=== PATIENT | male | born 1985 | race Two or more races ===

== ENCOUNTER 2024-11-27 19:50 | Emergency (ER) | payer MEDICAID, SELFPAY ==
[2024-11-27 19:58] VITALS: BP 152/94; PULSE 111; RESP 19; TEMP 36.3; O2SAT 98; BMI 27.4
--- NOTE | 2024-11-27 20:30 | XR_ITS ---
Examination: CT brain head without contrast. 2-D sagittal coronal reconstructions Date and time of exam:November 27, 2024 2043 hours INDICATIONS: Injury to the head today, head pain CTDI: vol (mGy):52.2 DLP: (mGycm):1029 Technique: Multiple CT axial sections of the brain have been obtained, 5 mm slice thickness. Contrast has not been administered. 2-D sagittal, coronal reconstructions have been obtained Low dose protocols were performed. One or more of the following dose reduction techniques were used; automated exposure control, adjustment of the mA and/or KV according to patient size, use of iterative reconstruction technique. Findings: No significant ventricular enlargement. Intra-axial or extra-axial hemorrhage density is not seen. No mass effect or midline shift Basal cisterns are not remarkable. Fourth ventricle is midline. Cranial vault intact. Frontal sinusitis Old right nasal bone fracture Impression: Negative for acute hemorrhage, mass effect or midline shift
--- NOTE | 2024-11-27 20:45 | PD.EDMEDCL ---
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 Mode of arrival: ambulatory Limitations: no limitations Related Information Previous Rx's ?Medication ?Instructions ?Recorded acetaminophen 650 mg 650 mg PO Q8H PRN fever or pain 07/30/18 tablet,extended release #30 tabs ibuprofen 600 mg tablet 600 mg PO Q8H PRN fever or pain 07/30/18 #30 tabs acetaminophen 650 mg 650 mg PO Q8H PRN fever or pain 09/15/21 tablet,extended release #30 tabs amoxicillin 875 mg-potassium 1 tab PO Q12H #20 tabs 09/15/21 clavulanate 125 mg tablet ibuprofen 600 mg tablet 600 mg PO Q8H PRN fever or pain 09/15/21 #30 tabs Allergies Allergy/AdvReac Type Severity Reaction Status Date / Time No Known Allergies Allergy Verified 11/27/24 19:55 Review of Systems Review of Systems Systems Reviewed: All systems reviewed, normal except as documented Constitutional Constitutional: Reports system reviewed and no additional complaints, except as documented, Denies fatigue, Denies fever(s), Denies headache(s) and Denies weakness Eyes Eyes: Reports system reviewed and no additional complaints, except as documented, Denies blurry vision and Denies change in vision ENT Ears, Nose, Mouth, and Throat: Reports system reviewed and no additional complaints, except as documented, Denies otalgia, Denies headache(s), Denies nasal congestion, Denies throat swelling and Denies vertigo Cardiovascular Cardiovascular: Reports system reviewed and no additional complaints, except as documented, Denies chest pain, Denies dyspnea and Denies dyspnea on exertion Respiratory Respiratory: Reports system reviewed and no additional complaints, except as documented, Denies chest congestion, Denies cough, Denies dyspnea, Denies dyspnea on exertion and Denies wheezing Gastrointestinal Gastrointestinal: Reports system reviewed and no additional complaints, except as documented, Denies abdominal pain, Denies cramping, Denies nausea and Denies vomiting Genitourinary Genitourinary: Reports system reviewed and no additional complaints, except as documented, Denies dysuria and Denies hematuria Musculoskeletal Musculoskeletal: Reports system reviewed and no additional complaints, except as documented and Denies back pain Integumentary/Breasts Skin/Breast: Reports system reviewed and no additional complaints, except as documented and Denies wounds Neurologic Neurologic: Reports system reviewed and no additional complaints, except as documented, Denies confusion, Denies headache(s), Denies lack of coordination, Denies vertigo and Denies weakness Psychiatric Psychiatric: Reports system reviewed and no additional complaints, except as documented, Denies anxiety, Denies confusion, Denies depression, Denies paranoia, Denies suicidal ideation and Denies tactile hallucinations Endocrine Endocrine: Reports system reviewed and no additional complaints, except as documented and Denies fatigue Hematologic/Lymphatic Hematologic/Lymphatic: Reports system reviewed and no additional complaints, except as documented and Denies lymphadenopathy Allergic/Immunologic Allergic/Immunologic: Reports system reviewed and no additional complaints, except as documented, Denies throat swelling, Denies urticaria and Denies wheezing Past Medical History Past Medical History CARDIAC: Negative Congestive Heart Failure RESPIRATORY: Negative Chronic Obstructive Pulmonary Disease (COPD) GENITOURINARY: Negative Renal Disease ENDOCRINE: Negative Diabetes Mellitus Type 1 or Diabetes Mellitus Type 2 Social History SMOKING STATUS: Never smoker ED Exam General Limitations: Present no limitations General appearance: Present alert and in no apparent distress Head Head exam: Present atraumatic, normocephalic and normal inspection Expanded Head Exam Head exam physical: Absent laceration, abrasion, contusion, hematoma, raccoon eyes, Fiore's sign, tenderness of temporal artery, CSF rhinorrhea or CSF otorrhea Head image:  1. 2 cm abrasion to the center forehead Eye Eye exam: Present normal appearance, PERRL and EOMI ENT ENT exam: Present normal exam, normal oropharynx and mucous membranes moist Neck Neck exam: Present normal inspection, full ROM and trachea midline Chest Chest inspection: Present normal inspection and symmetric chest wall rise Respiratory Respiratory exam: Present normal lung sounds bilaterally Cardiovascular Cardiovascular exam: Present regular rate, normal rhythm and normal heart sounds Abdominal Exam Abdominal exam: Present soft and normal bowel sounds Extremities Exam Extremities exam: Present normal inspection and full ROM Back Exam Back exam: Present normal inspection and full ROM Neurological Exam Neurological exam: Present alert, oriented X3, CN II-XII intact, normal gait and reflexes normal Expanded Neurological Exam Patient oriented to: Present person, place and time Speech: Present fluid speech Cranial nerves: Normal: EOM function (II, III, IV, ) Motor strength - LUE: 5/5 Motor strength - RUE: 5/5 Motor strength - LLE: 5/5 Motor strength - RLE: 5/5 Coma scale eye opening: spontaneous Coma scale motor response: obeys commands Coma scale verbal response: oriented Coma scale total: 15 Psychiatric Psychiatric exam: Present normal affect and normal mood Skin Skin exam: Present warm, dry, intact and normal color Course Quality Measures none Orders Category Date Time Status CT head/brain wo con Stat Exams 11/27/24 20:30 Completed Vital Signs Vital signs: Vital Signs Temperature 97.4 F 11/27/24 19:58 Pulse Rate 111 H 11/27/24 19:58 Respiratory Rate 19 11/27/24 19:58 Blood Pressure 152/94 H 11/27/24 19:58 Pulse Oximetry (%) 98 11/27/24 19:58 Oxygen Delivery Method Room Air 11/27/24 19:58 Medical Clearance MDM Narrative MDM Narrative:: 39-year-old male with no known medical history presents to the emergency room with a chief complaint of 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 Patient is hemodynamically stable and in no apparent distress Physical examination shows a 2 cm abrasion to the center of the forehead. According to officers the patient was pulled out of his car and slammed on the floor where he hit his head on the road. The patient denies any headaches, dizziness, lightheadedness and states he just wants to get taken to intermediate CT of the head and brain was completed and was negative for any acute findings Patient was discharged and educated to follow-up with primary care provider in the next 24 to 48 hours and return to the emergency room for any evidence of worsening signs or symptoms Patient data External records reviewed:: [facility] previous records Clinical information provided by:: patient Social determinants that could affect healthcare access:: none Patient has the following chronic illnesses:: No chronic illness How is presenting disease/condition affected by chronic disease/condition?: no chronic disease Evaluation data The following diagnostics were reviewed and interpreted by me:: lab results and radiology exam(s) Lab and/or radiology exams considered but not ordered:: Labs and radiology exams considered and ordered Interpretation Summary: CT of the head and brain-Findings: No significant ventricular enlargement. Intra-axial or extra-axial hemorrhage density is not seen. No mass effect or midline shift Basal cisterns are not remarkable. Fourth ventricle is midline. Cranial vault intact. Frontal sinusitis Old right nasal bone fracture Impression: Negative for acute hemorrhage, mass effect or midline shift Medications / Prescriptions Medications or Prescriptions considered but not ordered:: No medication given Medication administrations:: No medication given Consultations Consultation(s) initiated? (list below): No Diagnosis Medical Clearance Differential Diagnosis: other (Closed head injury/concussion/head bleed) Most likely diagnosis given after review of the tests above:: Closed head injury Admission Indicated Admission indicated?: not indicated Admission Request Was there a request for admission?: No Disposition Plan Disposition Plan: Discharge Discharge Attestation Discharge Attestation: The patient and all family members were given an opportunity to ask questions and understood the discharge instructions. Discharge instructions specifically effects, indications for sooner follow up or return to the emergency department, and the expected course of current diagnosis. Patient condition: Stable Discharge Plan Plan Patient Disposition: HOME (Self Care) Discharge Disposition comment: Stable Prescriptions/Referrals Prescriptions/Med Rec: No Action acetaminophen 650 mg tablet extended release 650 mg PO Q8H PRN (Reason: fever or pain) Qty: 30 0RF Rx Instructions: swallow whole; do not crush, chew, break, dissolve, cut, or open ibuprofen 600 mg tablet 600 mg PO Q8H PRN (Reason: fever or pain) Qty: 30 0RF Rx Instructions: prn pain / fever acetaminophen 650 mg tablet extended release 650 mg PO Q8H PRN (Reason: fever or pain) Qty: 30 0RF Rx Instructions: swallow whole; do not chew/break/dissolve/open ibuprofen 600 mg tablet 600 mg PO Q8H PRN (Reason: fever or pain) Qty: 30 0RF amoxicillin-pot clavulanate 875-125 mg tablet 1 tab PO Q12H Qty: 20 0RF Referrals: No Primary/Family,Physician [Primary Care Provider] - In 1 week Problem List Clinical Impression: Closed head injury, Medical clearance for incarceration Patient/Caregiver Discharge Instructions Education Materials: ED Head Injury (Adult) Additional Instructions: The patient is medically cleared for incarceration. For any evidence of worsening signs or symptoms return to the emergency room immediately Print Language: Syriac Stand Alone Forms: Nanette Award Info., Patient Portal Info Letter PA/LIFE ENRICHMENT DIRECTOR Supervising Physician PA/LIFE ENRICHMENT DIRECTOR Supervising Physician: Dr. John
[2024-11-27 22:08] VITALS: RESP 18
== END 2024-11-27 22:09 ==
PROVIDERS: Emergency Provider Emergency Medicine
DX: Z02.89 Encounter for other administrative examinations (principal); S00.81XA Abrasion of other part of head, initial encounter; S09.90XA Unspecified injury of head, initial encounter; Y35.813A Legal intervention involving manhandling, suspect injured, initial encounter
CPT/HCPCS: 70450; 99284